=== PATIENT | male | born 2000 | race Caucasian/White ===

== ENCOUNTER 2022-10-18 19:48 | Emergency (ER) | payer OTHER ==
[~2022-10-18] VITALS: Ht 172.7 cm; Wt 68.0 kg
[2022-10-18 20:26] VITALS: BP 126/78; TEMP 98.6
[2022-10-18] MEDS ORDERED: METHOCARBAMOL (500MG) 500 MG TABLET ONE (21:26)
[2022-10-18] MEDS ORDERED: LIDOCAINE 5% (PATCH) 1 EA PATCH TP ONE ×2 (21:26→21:30)
[2022-10-18] MEDS ORDERED: KETOROLAC TROMETHAMINE INJ 30 MG/ML VIAL ONE (21:26)
[2022-10-18] MEDS ORDERED: METHOCARBAMOL (500MG) 500 MG TABLET PO ONE (21:30)
[2022-10-18] MEDS ORDERED: KETOROLAC TROMETHAMINE INJ 30 MG/ML VIAL IM ONE (21:30)
[2022-10-18] MEDS ORDERED: IBUP-1955 PO (21:32)
[2022-10-18] MEDS ORDERED: METH-647 PO (21:32)
== END 2022-10-18 21:47 | disposition home or self-care (01) ==
LOC: ER 19:58
DX: S16.1XXA Strain of muscle, fascia and tendon at neck level, initial encounter (principal); S40.012A Contusion of left shoulder, initial encounter; R10.32 Left lower quadrant pain; E03.9 Hypothyroidism, unspecified; Z60.2 Problems related to living alone; V43.52XA Car driver injured in collision with other type car in traffic accident, initial encounter; Y93.89 Activity, other specified; Y92.89 Other specified places as the place of occurrence of the external cause; Y99.8 Other external cause status
CPT/HCPCS: 99283; 96372; J1885

== ENCOUNTER 2023-04-04 13:50 | Emergency (ER) | payer OTHER ==
[~2023-04-04] VITALS: Ht 172.7 cm; Wt 68.5 kg
[~2023-04-04 13:50] MED LIST: IBUP-1955 PO; METH-647 PO
[2023-04-04] MEDS ORDERED: SENNOSIDES/DOCUSATE SODIUM 1 TAB TABLET PO SCH (18:30)
[2023-04-04] MEDS ORDERED: POLYETHYLENE GLYCOL 3350 17 GM POWD.PACK PO ONE (18:30)
[2023-04-04] MEDS ORDERED: SENNOSIDES 8.6 MG TABLET ONE (18:37)
[2023-04-04 19:38] LABS: APPEARANCE,URINE CLEAR (CLEAR); BILIRUBIN,URINE 1+ (NEGATIVE); BLOOD, URINE TRACE-INTA Ery/uL (NEGATIVE); COLOR,URINE YELLOW (YELLOW); KETONES,URINE 2+ mg/dL (NEGATIVE); LEUKOCYTE ESTERASE ,URINE NEGATIVE (NEGATIVE); NITRITE, URINE NEGATIVE (NEGATIVE); PROTEIN,URINE NEGATIVE (NEGATIVE); UGLUCOSE NEGATIVE (NEGATIVE)
[2023-04-04] MEDS ORDERED: ONDA4TAB11 PO (20:21)
[2023-04-04] MEDS ORDERED: SENN-261 PO (20:21)
[2023-04-04] MEDS ORDERED: POLY17PO4 PO (20:21)
[2023-04-04] MEDS ORDERED: ONDANSETRON 4 MG TAB.RAPDIS SL ONE (20:30)
[2023-04-04 20:32] LABS: ADD URINE CULTURE NO; BACTERIA,URINE None seen /HPF (None Seen); WBC,URINE 0-2 /HPF (0-3)
[2023-04-04] MEDS ORDERED: ONDANSETRON 4 MG TAB.RAPDIS ONE (20:36)
[2023-04-04 20:52] VITALS: BP 121/64; TEMP 98.7; O2SAT 100
[2023-04-07 03:07] LABS: *HSV 1 DNA PCR Negative (Negative); *HSV 2 DNA PCR Negative (Negative)
== END 2023-04-04 20:52 | disposition home or self-care (01) ==
LOC: ER 14:03
DX: K59.00 Constipation, unspecified (principal); R30.0 Dysuria; Z79.899 Other long term (current) drug therapy; Z60.2 Problems related to living alone
CPT/HCPCS: 99284; 81001; 36415; 87529; Q0162